=== PATIENT | female | born 1945 | race Caucasian/White ===

== ENCOUNTER 2022-10-19 10:56 | Outpatient (REF) | payer MEDICARE, SELFPAY ==
--- NOTE | ~2022-10-19 | XR_ITS ---
EXAMINATION: XR FOOT, RIGHT CLINICAL INFORMATION: Arthropathic psoriasis. COMPARISON: None available. TECHNIQUE: AP, lateral, and oblique views of the right foot. FINDINGS: There is bony demineralization. No fracture, dislocation or right ankle joint effusion is seen. Boehler's angle is normal. There is a minimal posterior calcaneal spur. There is mild arthritic change of the interphalangeal joint of the great toe, the fifth proximal interphalangeal joint and of the first metatarsophalangeal joint. Tiny marginal erosions are questioned of the first and fifth interphalangeal joints. There is mild bunion formation. There are atherosclerotic calcifications. No focal soft tissue swelling, gas or foreign body is seen. XR/XR foot LT 2V IMPRESSION: 1. There are arthritic changes of the right foot. Tiny marginal erosions are noted of the first and fifth toe interphalangeal joints, consistent with the provided history of psoriatic arthritis. 2. A small posterior calcaneal spur is noted. 3. There is mild bunion formation. EXAMINATION: XR FOOT, LEFT CLINICAL INFORMATION: Arthropathic psoriasis. COMPARISON: None available. TECHNIQUE: AP, lateral, and oblique views of the left foot. FINDINGS: There is bony demineralization. No fracture, dislocation or joint effusion is seen. There is a metatarsus adductus and hallux valgus configuration. There is a large bunion of the first metatarsal head, a small bunionette is seen of the fifth metatarsal head. A small marginal erosion is noted of the head of the first metatarsal bone, raising the possibilities of arthropathic psoriasis or gout. No tophus formation is seen. There is mild osteoarthritic change of the interphalangeal joint of the great toe. Boehler's angle is normal. There is no significant calcaneal spur. There are atherosclerotic calcifications. No focal soft tissue swelling, gas or foreign body seen. IMPRESSION: 1. There are arthritic changes of the left foot. A marginal erosion of the first metatarsal head is consistent with the provided history of psoriatic arthritis. Gout is a further differential consideration. 2. There is bunion formation.
--- NOTE | ~2022-10-19 | XR_ITS ---
EXAMINATION: XR HAND/WRIST, RIGHT CLINICAL INFORMATION: Pain. COMPARISON: None available. TECHNIQUE: PA, lateral, and oblique views of the right hand and wrist are submitted, together with a dedicated navicular view. FINDINGS: There is bony demineralization. There is a mild ulnar minus variance. The second through fourth fingers are held in mild flexion. There is marked osteoarthritic change of the second distal interphalangeal joint. There is mild osteoarthritic change of the second and third metacarpophalangeal joints. There is marked osteoarthritic change of the first carpometacarpal joint. No fracture or dislocation is seen. The proximal and distal carpal rows are intact. There is no abnormal bone erosion. There are atherosclerotic calcifications. No focal soft tissue swelling, gas or foreign body is seen. XR/XR hand wrist RT IMPRESSION: There are multi-focal osteoarthritic changes of the right hand and wrist, detailed. No abnormal bone erosion is seen. No fracture or dislocation. EXAMINATION: XR HAND/WRIST, LEFT CLINICAL INFORMATION: Pain. COMPARISON: None available. TECHNIQUE: PA, lateral, and oblique views of the left hand and wrist are submitted, together with a dedicated navicular view. FINDINGS: There is bony demineralization. There is a very mild ulnar minus variance. There is mild osteoarthritic change of the fifth distal interphalangeal joint. There is slight osteoarthritic change of the third proximal interphalangeal and metacarpophalangeal joints. There is moderately severe osteoarthritic change of the first carpometacarpal joint. No fracture or dislocation is seen. The proximal and distal carpal rows are intact. There is no abnormal bone erosion. There are atherosclerotic calcifications. No focal soft tissue swelling, gas or foreign body is seen. IMPRESSION: There are multi-level osteoarthritic changes of the left hand and wrist, as detailed. There is no focal bone erosion. No fracture or dislocation is seen.
--- NOTE | ~2022-10-19 | XR_ITS ---
EXAMINATION: XR HAND/WRIST, RIGHT CLINICAL INFORMATION: Pain. COMPARISON: None available. TECHNIQUE: PA, lateral, and oblique views of the right hand and wrist are submitted, together with a dedicated navicular view. FINDINGS: There is bony demineralization. There is a mild ulnar minus variance. The second through fourth fingers are held in mild flexion. There is marked osteoarthritic change of the second distal interphalangeal joint. There is mild osteoarthritic change of the second and third metacarpophalangeal joints. There is marked osteoarthritic change of the first carpometacarpal joint. No fracture or dislocation is seen. The proximal and distal carpal rows are intact. There is no abnormal bone erosion. There are atherosclerotic calcifications. No focal soft tissue swelling, gas or foreign body is seen. XR/XR hand wrist LT IMPRESSION: There are multi-focal osteoarthritic changes of the right hand and wrist, detailed. No abnormal bone erosion is seen. No fracture or dislocation. EXAMINATION: XR HAND/WRIST, LEFT CLINICAL INFORMATION: Pain. COMPARISON: None available. TECHNIQUE: PA, lateral, and oblique views of the left hand and wrist are submitted, together with a dedicated navicular view. FINDINGS: There is bony demineralization. There is a very mild ulnar minus variance. There is mild osteoarthritic change of the fifth distal interphalangeal joint. There is slight osteoarthritic change of the third proximal interphalangeal and metacarpophalangeal joints. There is moderately severe osteoarthritic change of the first carpometacarpal joint. No fracture or dislocation is seen. The proximal and distal carpal rows are intact. There is no abnormal bone erosion. There are atherosclerotic calcifications. No focal soft tissue swelling, gas or foreign body is seen. IMPRESSION: There are multi-level osteoarthritic changes of the left hand and wrist, as detailed. There is no focal bone erosion. No fracture or dislocation is seen.
[2022-10-19 13:36] LABS: MANUAL DIFF FLAG NO
[2022-10-19 14:13] LABS: Basophils Percent Auto 0.3 % (0-2); Eosinophils Absolute Auto 0.1 X10*3/uL (0.0-0.4); Eosinophils Percent Auto 0.4 % (0-4); Hematocrit 35.9 % (37.0-47.0); Hemoglobin 11.7 g/dl (12.0-16.0); Imm Gran Pct Auto 0.9 % (0.0-0.4); Lymphocytes Absolute Auto 0.6 X10*3/uL (1.2-4.9); Lymphocytes Percent Auto 5.6 % (20-40); Mean Corpuscular HGB Conc 32.6 g/dl (31.0-35.0); Mean Corpuscular Hemoglobin 33.4 pg (27.0-33.0); Mean Corpuscular Volume 102.6 fL (80.0-98.0); Mean Platelet Volume 10.5 fL (9.4-12.3); Monocytes Absolute Auto 0.9 X10*3/uL (0.1-1.2); Monocytes Percent Auto 7.7 % (2-11); Neutrophils Absolute Auto 9.5 x10*3/uL (2.0-8.3); Neutrophils Percent Auto 85.1 % (45-73); Platelet Count 249 X10*3/uL (160-400); Red Cell Distribution Width 13.3 % (11.0-16.0); White Blood Count 11.2 X10*3/uL (4.8-10.8)
[2022-10-19 15:00] LABS: Alanine Aminotransferase 22 U/L (0-31); Alkaline Phosphatase 55 U/L (39-117); Anion Gap 13 (12-20); Aspartate Amino Transferase 16 U/L (5-31); Bilirubin Total 0.8 mg/dL (0.0-1.0); Blood Urea Nitrogen 25 mg/dL (9-16); Carbon Dioxide 26 mmol/L (22-29); Chloride 108 mmol/L (96-108); Estimated Glomerular Filt Rate 51; Glucose Random 95 mg/dL (60-115); Potassium 4.5 mmol/L (3.3-5.1); Sodium 142 mmol/L (135-145); Total Protein 6.9 g/dL (6.5-8.0); Uric Acid 6.9 mg/dL (2.4-5.7)
[2022-10-19 15:05] LABS: Erythrocyte Sedimentation Rate 50 MM/HR (0-20)
[2022-10-21 04:41] LABS: HBS Num1 0.28 mIU/mL (0-7.99); HBc Num1 0.13 S/CO (0.00-0.79); HBsAGNum1 0.36 S/CO (0.00-0.99); Hepatitis A Antibody IgM 0.67 Index (0-0.79); Hepatitis B Core Antibody Nonreactive (Nonreactive); Hepatitis B Surface Antigen Negative (Negative); ~HepC Num1 0.19 S/CO (0.00-0.79); ~Hepatitis A Antibody IgM Nonreactive (Nonreactive); ~Hepatitis B Surface Antibody NONREACTIVE (Nonreactive); ~Hepatitis C Antibody Nonreactive (Nonreactive)
[2022-10-22 12:49] LABS: TS Negative Control Passed; TS Panel A 0; TS Panel B 0; TS Positive Control Passed; TSpotTB Negative (Negative)
== END 2022-10-19 10:57 | disposition home or self-care (01) ==
LOC: HO.XRAY 10:56
PROVIDERS: PCP Physician Assistant; Visit Provider Nurse Practitioner Family
DX: L40.50 Arthropathic psoriasis, unspecified (principal); M79.641 Pain in right hand; M79.642 Pain in left hand
CPT/HCPCS: 36415; 73110; 73130; 73620; 80053; 84550; 85025; 85652; 86140; 86481; 86704; 86706; 86709; 86803; 87340; 99202

== ENCOUNTER 2022-12-23 10:23 | Outpatient (REF) | payer MEDICARE, SELFPAY ==
--- NOTE | 2022-12-23 10:30 | EMG_ITS ---
Please see scanned EMG / Nerve Conduction Report. MTDD
== END 2022-12-23 10:24 | disposition home or self-care (01) ==
LOC: HO.NEURO 10:23
PROVIDERS: PCP Physician Assistant; Visit Provider Nurse Practitioner Family
DX: R20.0 Anesthesia of skin (principal); R20.2 Paresthesia of skin
CPT/HCPCS: 95885; 95913

== ENCOUNTER 2023-02-03 11:14 | Outpatient (AMB) | payer MEDICARE, SELFPAY ==
[2023-02-03 11:21] VITALS: BP 120/68; PULSE 97; TEMP 36.2; O2SAT 97; BMI 26.0
--- NOTE | 2023-02-03 11:21 | MHC.OFFVIS ---
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 ] denosumab (Prolia) mg subcut digoxin 125 mcg PO DAILY folic acid 3 mg PO DAILY levothyroxine 75 mcg PO DAILY methotrexate sodium 15 mg PO QWEEK metoprolol tartrate 50 mg PO BID metoprolol tartrate 25 mg PO BID prednisone 4 mg (4 x 1 mg) PO DAILY simvastatin 10 mg PO BEDTIME HPI HPI Comments History of Present Illness Details Patient presents with her daughter for evaluation of her psoriatic arthritis. She has been treated with prednisone for a number of years, she recalls being up as high as 9 mg daily. In recent years she has been on methotrexate currently at 15 mg weekly with folic acid 3 mg daily and prednisone at 4 mg daily. She was supposed to come back earlier in the winter but could not come because she had bilateral cataract surgeries and 2 hospitalizations for UTI. The daughter says there are no symptoms that preceded her developing confusion that lead to an ER visit where it was fouhd she had a UTI. Areas of pain include the hands and wrists at times, she has trouble walking because of low back pain, right knee pain and foot pain. She had previous surgery on the right knee for fracture, they are not sure what was actually done. She had hip surgery also for a fracture years ago. She has difficulty with memory but does live along with family support available. She had bilateral upper extremity nerve conduction studies done showing severe carpal tunnel syndrome on the right and moderately severe on the left. [facility] Medical History (Updated 02/03/23 @ 12:41 by Lenin Cruz MD) Atrial fibrillation Benign essential hypertension Chronic kidney disease, stage 3 Gout Hypothyroidism Multiple joint pain Myopia Osteoporosis Polymyalgia rheumatica Presbyopia Psoriasis with arthropathy Surgical History (Updated 02/03/23 @ 11:29 by GRETTA Costa) Hip fracture requiring operative repair Hx of cataract extraction Hx of right knee surgery Family History Mother Ischemic Diabetes Brother Stroke Melanoma PVD (peripheral vascular disease) Bladder cancer Sister Dementia Father Bone cancer Skin cancer Social History Patient Tobacco Use Status: Never used Tobacco e-Cigarette/Vaping Use: Never Used Current occupational status: retired Review of Systems Const Details: Low energy. Negative for appetite change, weight change, fever, chills, malaise Eyes Details: She says she is still recovering from the cataract surgery. Negative for the dry eyes,headaches and dizziness ENT Details: Negative for hearing change, tinnitus, oral ulcer, nose bleeds and oral dryness. Card Details: Negative chest pain, edema, palpitations and syncope Resp Details: Negative for SOB, cough and wheezing GI Details: Negative indigestion/heartburn, nausea, abdominal pain, bowel changes, diarrhea, constipation and bloody stool. Details: Negative for dysuria, hematuria, nocturia, decreased force/flow and genital discharge Skin/Breast Details: Patch of psoriasis on the lower back area. Negative for itching, hives, Raynaud's symptoms, sun sensitivity, and skin cancer Neuro Details: Memory problems. Tingling in the fingers. This is more prominent on the right hand. Negative for epilepsy, palsy, stroke, changes in speech, tingling and weakness Psych Details: Negative for anxiety, depression and stress Endo Details: Was told of a high blood sugar in the past. Daughter said A1cs have been monitored. Negative for polyuria and polydypsia Melecio/Lymph Details: Negative for excessive bruising or bleeding. Physical Exam Vital Signs: Last Vital Signs Temp 97.2 F 02/03/23 11:21 Pulse 97 02/03/23 11:21 BP 120/68 02/03/23 11:21 Pulse Ox 97 02/03/23 11:21 BMI result Body Mass Index 26.0 APPEARANCE: Patient in no acute distress EYES no redness, pupils equal and reactive to light, eyelids normal. No temporal artery tenderness, redness or swelling. EXTREMITIES: No edema, no calf tenderness, normal peripheral pulses. NEURO: Oriented and alert x3. No focal weakness. Reflexes symmetric. She has a tentative wide-based gait. SKIN: Patch of red and scaling skin in the lower back region consistent with psoriasis. Cervical Spine:? Full range of motion without pain; no tenderness. Thoracic Spine.? Kyphotic.? No tenderness on palpation. Lumbar Spine:? Alignment normal.? Mild lumbar pain with flexion at 60 degrees with some paraspinal muscle tenderness. Hands: LEFT:? No pain with range of motion.? There is slight soft tissue swelling of the 1st, 2nd, 3rd, and 5th MCP joints. These are minimally tender. There is some bony thickening at the 2nd 3rd PIP without tenderness. There is some thenar atrophy but no sensory loss. A ? RIGHT:? No pain with range of motion.? Mild swelling of the 1st 3 MCP joints with some slight tenderness at the 2nd MCP. Multiple, small, white superficial deposits noted on pad of the index finger at the DIP, also some bony enlargement of the 2nd DIP, ?Heberden's node versus tophi.? There is slight bony enlargement flexion deformity at the PIP joints. These are not tender. Mild thenar atrophy with some decreased sensation over the fingertips, more prominent in the 1st 3 fingers. Wrists:? Right: Slight discomfort with flexion at 75 degrees with some minimal tenderness but no swelling. Left: Mild pain with flexion or extension at 60 degrees. Mild tenderness without swelling. Elbows: LEFT: Normal pain-free range of motion without tenderness, swelling, increased warmth or erythema. ? RIGHT:? Normal range of motion, tenderness to palpation over the lateral epicondyle and just below the olecranon.? No swelling, increased warmth or erythema. Shoulders:?? Full range of motion without pain. No tenderness, weakness, swelling, increased warmth or erythema. Hips:? Right: Some decrease in range of motion but no pain with motion. Left: Full range of motion without pain. Hip bursa:? No tenderness. Knees: LEFT: Normal pain-free range of motion with slight patellofemoral crepitus.? There is no effusion evident. Slight medial and lateral tenderness without swelling, increased warmth or erythema.? RIGHT:? There is a well-healed anterior scar. She lacks about 10 degrees of full extension. There is mild crepitus with range of motion and slight pain at the extremes of normal flexion or extension. There is mild medial tenderness. Ankles:? Normal pain-free range of motion without tenderness, swelling, increased warmth or erythema. Feet: Moderate hallux valgus deformity and mild bony enlargement at the 1st MTP's, more prominent on the left.. That area is not tender. She does have pes planus deformity but no areas of discrete swelling or tenderness. ? ? ? 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 There is psoriasis in the lower back so I think this is more the picture of psoriatic arthritis rather than PMR. There is likely also some osteoarthritis in hands, feet and lower back. She has severe carpal tunnel syndrome on the right hand moderately severe in the left. This is likely giving her some of the hand paresthesias and numbness. She has had a couple of UTI recently that required hospitalizations so there is concern about the immunosuppressive effect of methotrexate and prednisone. She has been on both for a number of years. I am not sure there is much synovitis that needs to be suppressed with the prednisone so we will try to see if we could back that down to 3 mg daily. She will follow-up with primary care about further workup for her recurrent UTI. Additional treatment for the psoriatic arthritis may be challenging given her proclivity to urinary infections. We will check things in 2-3 months. She needs to get lab work done today to monitor the methotrexate. Orders: Orders Comprehensive Met. Panel Today L40.50 - Arthropathic psoriasis, unspecified C Reactive Protein Today L40.50 - Arthropathic psoriasis, unspecified Complete Blood Count Auto Diff Today L40.50 - Arthropathic psoriasis, unspecified, Z79.899 - Other senior living (current) drug therapy Erythrocyte Sedimentation Rate Today L40.50 - Arthropathic psoriasis, unspecified Medications: Changed From prednisone 4 mg (4 x 1 mg) PO DAILY 120 tabs 1RF M35.3 - Polymyalgia rheumatica To prednisone 3 mg (3 x 1 mg) PO DAILY 90 tabs 1RF M35.3 - Polymyalgia rheumatica Coding Level of Care Code Est Pt Level 3 (99011) Diagnoses Long-term use of immunosuppressant medication Z79.60 Carpal tunnel syndrome on both sides G56.03 Psoriasis L40.9 Osteoarthritis of hands, bilateral M19.041; M19.042 Psoriasis with arthropathy L40.50
== END 2023-02-03 12:15 | disposition home or self-care (01) ==
LOC: HO.RHE 11:14
PROVIDERS: PCP Physician Assistant; Visit Provider Internal Medicine Rheumatology
DX: Z79.60 Long term (current) use of unspecified immunomodulators and immunosuppressants (principal); G56.03 Carpal tunnel syndrome, bilateral upper limbs; L40.9 Psoriasis, unspecified; M19.041 Primary osteoarthritis, right hand; M19.042 Primary osteoarthritis, left hand; L40.50 Arthropathic psoriasis, unspecified
CPT/HCPCS: 99213

== ENCOUNTER → 2023-02-03 11:14 | Outpatient (BNVA) | payer MEDICARE, SELFPAY | PROVIDERS: PCP Physician Assistant; Visit Provider Internal Medicine Rheumatology ==

== ENCOUNTER 2023-02-03 12:22 | Outpatient (REF) | payer MEDICARE, SELFPAY ==
[2023-02-03 13:35] LABS: MANUAL DIFF FLAG NO
[2023-02-03 13:49] LABS: Basophils Absolute Auto 0.1 X10*3/uL (0.0-0.2); Basophils Percent Auto 0.5 % (0-2); Eosinophils Absolute Auto 0.1 X10*3/uL (0.0-0.4); Eosinophils Percent Auto 0.5 % (0-4); Hematocrit 35.8 % (37.0-47.0); Hemoglobin 11.4 g/dl (12.0-16.0); Imm Gran Abs Auto 0.14 X10*3/uL (0.00-0.03); Imm Gran Pct Auto 1.4 % (0.0-0.4); Lymphocytes Absolute Auto 0.8 X10*3/uL (1.2-4.9); Mean Corpuscular HGB Conc 31.8 g/dl (31.0-35.0); Mean Corpuscular Hemoglobin 32.6 pg (27.0-33.0); Mean Corpuscular Volume 102.3 fL (80.0-98.0); Monocytes Absolute Auto 1.4 X10*3/uL (0.1-1.2); Monocytes Percent Auto 14.4 % (2-11); Neutrophils Absolute Auto 7.5 x10*3/uL (2.0-8.3); Neutrophils Percent Auto 75.2 % (45-73); Platelet Count 206 X10*3/uL (160-400); Red Cell Distribution Width 15.3 % (11.0-16.0)
[2023-02-03 14:30] LABS: Alanine Aminotransferase 17 U/L (0-31); Albumin Level 4.1 g/dL (3.5-5.0); Alkaline Phosphatase 48 U/L (39-117); Anion Gap 15 (12-20); Aspartate Amino Transferase 19 U/L (5-31); Bilirubin Total 0.7 mg/dL (0.0-1.0); Blood Urea Nitrogen 13 mg/dL (9-16); C Reactive Protein 0.28 mg/dL (< or = 0.50); Calcium 10.4 mg/dL (8.4-10.2); Carbon Dioxide 27 mmol/L (22-29); Chloride 104 mmol/L (96-108); Estimated Glomerular Filt Rate 55; Glucose Random 96 mg/dL (60-115); Potassium 4.1 mmol/L (3.3-5.1); Sodium 142 mmol/L (135-145); Total Protein 7.5 g/dL (6.5-8.0)
[2023-02-03 15:00] LABS: Erythrocyte Sedimentation Rate 29 MM/HR (0-20)
== END 2023-02-03 12:23 | disposition home or self-care (01) ==
LOC: HO.10HDL 12:22
PROVIDERS: Visit Provider Internal Medicine Rheumatology
DX: L40.50 Arthropathic psoriasis, unspecified (principal); G56.03 Carpal tunnel syndrome, bilateral upper limbs; Z79.60 Long term (current) use of unspecified immunomodulators and immunosuppressants
CPT/HCPCS: 36415; 80053; 85025; 85652; 86140; 99212

== ENCOUNTER 2023-04-28 10:41 | Outpatient (REF) | payer MEDICARE, SELFPAY ==
[2023-04-28 13:19] LABS: MANUAL DIFF FLAG NO
[2023-04-28 13:28] LABS: Basophils Percent Auto 0.4 % (0-2); Eosinophils Absolute Auto 0.1 X10*3/uL (0.0-0.4); Eosinophils Percent Auto 0.6 % (0-4); Hematocrit 34.8 % (37.0-47.0); Hemoglobin 11.2 g/dl (12.0-16.0); Imm Gran Abs Auto 0.09 X10*3/uL (0.00-0.03); Imm Gran Pct Auto 1.2 % (0.0-0.4); Lymphocytes Absolute Auto 0.8 X10*3/uL (1.2-4.9); Mean Corpuscular HGB Conc 32.2 g/dl (31.0-35.0); Mean Corpuscular Hemoglobin 33.3 pg (27.0-33.0); Mean Corpuscular Volume 103.6 fL (80.0-98.0); Mean Platelet Volume 10.7 fL (9.4-12.3); Monocytes Absolute Auto 1.3 X10*3/uL (0.1-1.2); Monocytes Percent Auto 16.7 % (2-11); Neutrophils Absolute Auto 5.5 x10*3/uL (2.0-8.3); Neutrophils Percent Auto 71.1 % (45-73); Platelet Count 177 X10*3/uL (160-400); Red Blood Count 3.36 X10*6/uL (4.20-5.50); Red Cell Distribution Width 14.5 % (11.0-16.0); White Blood Count 7.8 X10*3/uL (4.8-10.8)
[2023-04-28 14:15] LABS: Alanine Aminotransferase 20 U/L (0-31); Aspartate Amino Transferase 20 U/L (5-31); C Reactive Protein 0.48 mg/dL (< or = 0.50); Estimated Glomerular Filt Rate 56
[2023-04-28 14:18] LABS: Erythrocyte Sedimentation Rate 25 MM/HR (0-20)
== END 2023-04-28 10:42 | disposition home or self-care (01) ==
LOC: HO.10HDL 10:41
PROVIDERS: Visit Provider Internal Medicine Rheumatology
DX: L40.50 Arthropathic psoriasis, unspecified (principal); Z79.899 Other long term (current) drug therapy
CPT/HCPCS: 36415; 82565; 84450; 84460; 85025; 85652; 86140

== ENCOUNTER 2023-05-17 13:12 | Outpatient (REF) | payer MEDICARE, SELFPAY ==
--- NOTE | ~2023-05-17 | XR_ITS ---
EXAMINATION: XR HAND, RIGHT CLINICAL INFORMATION: Right index finger elbow lump. COMPARISON: None available. TECHNIQUE: PA, lateral, and oblique views of the right hand. FINDINGS: Bony alignment and mineralization are normal. There is an ulnar minus variance. There is mild osteoarthritic change of the interphalangeal joint of the thumb. There is marked osteoarthritic change of the second distal interphalangeal joint, with Heberden's node formation. There is mild osteoarthritic change of the third and fifth distal interphalangeal joints. There is narrowing of the second and third metacarpophalangeal joints, with subluxations. No fracture or dislocation is seen. The proximal and distal carpal rows are intact. No focal soft tissue swelling, gas or foreign body seen. There are diffuse atherosclerotic calcifications. XR/XR hand RT min 3V IMPRESSION: Screening there are osteoarthritic changes of the right hand, as detailed. Prominent Heberden's nodes of the second distal interphalangeal joint account for the clinical presentation.
[2023-05-17 15:33] LABS: Uric Acid 7.7 mg/dL (2.4-5.7)
== END 2023-05-17 13:13 | disposition home or self-care (01) ==
LOC: HO.XRAY 13:12
PROVIDERS: PCP Physician Assistant; Visit Provider Internal Medicine Rheumatology
DX: L40.50 Arthropathic psoriasis, unspecified (principal); R22.31 Localized swelling, mass and lump, right upper limb; M79.641 Pain in right hand; G56.03 Carpal tunnel syndrome, bilateral upper limbs; Z79.899 Other long term (current) drug therapy
CPT/HCPCS: 36415; 73130; 84550; 99212

== ENCOUNTER 2023-05-17 13:12 | Outpatient (AMB) | payer MEDICARE, SELFPAY ==
--- NOTE | 2023-05-17 13:17 | A.OFFVIS_ITS ---
Intake Vital Signs 3 05/17/23 13:19 Height 5 ft 2 in Weight 142 lb 10.225 oz BMI 26.1 BP 100/86 Blood Pressure Location Rt brachial Position Sitting Pulse 68 Pulse Source Pulse Oximeter Temp 98.1 F Temp Source Skin Pulse Oximetry (%) 98 Oxygen Delivery Method Room Air Intake Visit Reasons: psa Intake Note: Patient presents today to follow up on PsA and test results. c/o white spots on right index finger Advertising Strategist Required: No Accompanied by: Daughter Allergies No Known Allergies Allergy (Verified 05/17/23 13:17) HPI HPI Comments 2 History of Present Illness0 Details The patient returns for evaluation of her arthritis with her daughter. She reports her usual level of joint pain but quite a bit of numbness in the 1st 3 fingers of the right hand. We thinks she may have psoriatic arthritis and we have been tapering her prednisone, currently it is down to 3 mg daily. The methotrexate is at 15 mg weekly with 3 mg daily folic acid. She has had nerve conduction studies showing bilateral carpal tunnel syndrome, more severe on the right side. There is also known osteoarthritis in the hands. She also notes a deposit the radial aspect of the 2nd distal phalanx. This area is not tender and there has been no draining. [facility] Medical History (Updated 05/17/23 @ 14:10 by Lenin Cruz MD) Gout Polymyalgia rheumatica Osteoporosis Myopia Atrial fibrillation Presbyopia Hypothyroidism Psoriasis with arthropathy Benign essential hypertension Chronic kidney disease, stage 3 Multiple joint pain Surgical History Hx of cataract extraction Hx of right knee surgery Hip fracture requiring operative repair Family History Mother Ischemic Diabetes Brother Stroke Melanoma PVD (peripheral vascular disease) Bladder cancer Sister Dementia Father Bone cancer Skin cancer Social History Patient Tobacco Use Status: Never used Tobacco e-Cigarette/Vaping Use: Never Used Current occupational status: retired Review of Systems Const Details: Negative for appetite change, weight change, fever, chills, malaise and fatigue Eyes Details: Negative for vision change, dry eyes,headaches and dizziness ENT Details: Negative for hearing change, tinnitus, oral ulcer, nose bleeds and oral dryness. Card Details: Negative chest pain, edema and syncope Resp Details: Negative for SOB, cough and wheezing GI Details: Negative indigestion/heartburn, nausea, abdominal pain, bowel changes, diarrhea, constipation and bloody stool. Details: She continues to get occasional urinary tract infections. Presently negative for dysuria, hematuria, nocturia, decreased force/flow and genital discharge Skin/Breast Details: She says she has some psoriasis on the back. Chronic problem for her. Negative for itching, hives, Raynaud's symptoms, sun sensitivity the Neuro Details: Numbness in the hands, more severe on the right. Memory difficulties. Negative for epilepsy, palsy, stroke, changes in speech and weakness Endo Details: Negative for polyuria and polydypsia Melecio/Lymph Details: Negative for excessive bruising or bleeding. Physical Exam Vital Signs: Last Vital Signs Temp 98.1 F 05/17/23 13:19 Pulse 68 05/17/23 13:19 BP 100/86 05/17/23 13:19 Pulse Ox 98 05/17/23 13:19 Oxygen Delivery Method Room Air 05/17/23 13:19 BMI result Body Mass Index 26.1 APPEARANCE: Patient in no acute distress EYES no redness, pupils equal and reactive to light, eyelids normal EXTREMITIES: No edema, no calf tenderness, normal peripheral pulses. SKIN: Patch of psoriasis on the back. Fingertip skin has Normal color and turgor JOINT EXAM:.?? Cervical Spine:? Full range of motion without pain; no tenderness. Thoracic Spine.? Kyphotic.? No tenderness on palpation. Lumbar Spine:? Alignment normal.? Mild lumbar pain with flexion at 60 degrees with some paraspinal muscle tenderness. Hands: LEFT:? No pain with range of motion.? There is slight soft tissue swelling of the 1st, 2nd, 3rd, and 5th MCP joints. These are minimally tender. There is some bony thickening at the 2nd 3rd PIP without tenderness. There is some thenar atrophy but no sensory loss. A ? RIGHT:? No pain with range of motion.? Mild swelling of the 1st 3 MCP joints with some slight tenderness at the 2nd MCP. Multiple, small, white superficial deposits noted on pad of the index finger at the DIP, also some bony enlargement of the 2nd DIP, ?Heberden's node versus tophi.? There is slight bony enlargement flexion deformity at the PIP joints. These are not tender. Mild thenar atrophy with some decreased sensation over the fingertips, more prominent in the 1st 3 fingers. Photo of 2nd distal phalanx: Wrists:? Right: Slight discomfort with flexion at 75 degrees with some minimal tenderness but no swelling. Left: Mild pain with flexion or extension at 60 degrees. Mild tenderness without swelling. Elbows: LEFT: Normal pain-free range of motion without tenderness, swelling, increased warmth or erythema. ? RIGHT:? Normal range of motion, tenderness to palpation over the lateral epicondyle and just below the olecranon.? No swelling, increased warmth or erythema. Shoulders:?? Full range of motion without pain. No tenderness, weakness, swelling, increased warmth or erythema. Hips:? Right: Some decrease in range of motion but no pain with motion. Left: Full range of motion without pain. Hip bursa:? No tenderness. Knees: LEFT: Normal pain-free range of motion with slight patellofemoral crepitus.? There is no effusion evident. Slight medial and lateral tenderness without swelling, increased warmth or erythema.? RIGHT:? There is a well-healed anterior scar. She lacks about 10 degrees of full extension. There is mild crepitus with range of motion and slight pain at the extremes of normal flexion or extension. There is mild medial tenderness. Ankles:? Normal pain-free range of motion without tenderness, swelling, increased warmth or erythema. Feet: Moderate hallux valgus deformity and mild bony enlargement at the 1st MTP's, more prominent on the left.. That area is not tender. She does have pes planus deformity but no areas of discrete swelling or tenderness. ? ? Office Procedures Joint Injection/Drain Joint Injection/Drain Primary Site: right carpal tunnel Injected: 40 mg of, with 0.5 mL of and 1% plain lidocaine Coding Additional procedure code (CPT) needed Results Reviewed Results Reviewed: Laboratory Tests 04/28/23 10:50 WBC 7.8 Hgb 11.2 L ESR 25 H Laboratory Tests 04/28/23 10:50 Creatinine 0.96 AST 20 ALT 20 C-Reactive Protein 0.48 Assessment & Plan Assessment & Plan (1) Psoriasis with arthropathy: Code(s): L40.50 - Arthropathic psoriasis, unspecified (2) Mass of finger of right hand: Code(s): R22.31 - Localized swelling, mass and lump, right upper limb (3) Carpal tunnel syndrome on both sides: Comment: 12/23 EMG: severe on right, moderate on left Code(s): G56.03 - Carpal tunnel syndrome, bilateral upper limbs Plan The synovitis in the hands seem stable for now with current treatment but she has this persistent carpal tunnel symptoms, more apparent on the right where on nerve conduction studies findings were more significant for CTS. I told her we could inject the right wrist carpal tunnel regions and see if that would improve her symptoms. That would give her an idea of what to expect were she to have surgery, more definitive treatment. We reviewed potential benefits and risk of corticosteroid injections. With the patient's consent the volar aspect of the right wrist was prepped with ChloraPrep and alcohol. The wrist was anesthetized on the volar aspect with 1.5 cc of 1% lidocaine. The wrist was then injected with 40 mg of triamcinolone and 0.5 cc of 1% lidocaine. The patient tolerated the procedure well without acute problems. She will continue with current methotrexate as the lab work looked okay. This deposit in the finger looks more prominent now again suggestive of either calcium deposits from calcinosis or urate deposits from gout. We will recheck the x-ray to see if there is any visibility calcium minute, otherwise I would presume it is due to urate. We will check a uric acid today as well. I will get back to her with plans on possible allopurinol treatment for this gout problem. Follow-up in 6 weeks is recommended. Orders: Orders 2 XR hand RT min 3V Today R22.31 - Localized swelling, mass and lump, right upper limb AMB Joint Injection/Aspiration Today G56.03 - Carpal tunnel syndrome, bilateral upper limbs Uric Acid Today R22.31 - Localized swelling, mass and lump, right upper limb Medications: Changed 2 From prednisone 3 mg (3 x 1 mg) PO DAILY 90 tabs 2RF M35.3 - Polymyalgia rheumatica To prednisone 2 mg (2 x 1 mg) PO DAILY 60 tabs 2RF M35.3 - Polymyalgia rheumatica Coding Level of Care Code Est Pt Level 4 (26188) Diagnoses Psoriasis with arthropathy L40.50 Mass of finger of right hand R22.31 Carpal tunnel syndrome on both sides G56.03
[2023-05-17 13:19] VITALS: BP 100/86; PULSE 68; TEMP 36.7; O2SAT 98; BMI 26.1
== END 2023-05-17 14:17 | disposition home or self-care (01) ==
PROVIDERS: PCP Physician Assistant; Visit Provider Internal Medicine Rheumatology
DX: L40.50 Arthropathic psoriasis, unspecified (principal); R22.31 Localized swelling, mass and lump, right upper limb; G56.03 Carpal tunnel syndrome, bilateral upper limbs
CPT/HCPCS: 99214

== ENCOUNTER 2023-07-01 10:40 | Outpatient (REF) | payer MEDICARE, SELFPAY ==
[2023-07-01 10:54] LABS: MANUAL DIFF FLAG NO
[2023-07-01 11:25] LABS: Basophils Percent Auto 0.5 % (0-2); Eosinophils Absolute Auto 0.1 X10*3/uL (0.0-0.4); Eosinophils Percent Auto 1.4 % (0-4); Hematocrit 33.2 % (37.0-47.0); Hemoglobin 10.7 g/dl (12.0-16.0); Imm Gran Abs Auto 0.06 X10*3/uL (0.00-0.03); Imm Gran Pct Auto 0.8 % (0.0-0.4); Lymphocytes Percent Auto 13.1 % (20-40); Mean Corpuscular HGB Conc 32.2 g/dl (31.0-35.0); Mean Corpuscular Hemoglobin 33.6 pg (27.0-33.0); Mean Corpuscular Volume 104.4 fL (80.0-98.0); Monocytes Absolute Auto 1.3 X10*3/uL (0.1-1.2); Monocytes Percent Auto 16.6 % (2-11); Neutrophils Absolute Auto 5.2 x10*3/uL (2.0-8.3); Neutrophils Percent Auto 67.6 % (45-73); Platelet Count 157 X10*3/uL (160-400); Red Blood Count 3.18 X10*6/uL (4.20-5.50); Red Cell Distribution Width 14.2 % (11.0-16.0); White Blood Count 7.6 X10*3/uL (4.8-10.8)
[2023-07-01 12:12] LABS: Alanine Aminotransferase 18 U/L (0-31); Aspartate Amino Transferase 17 U/L (5-31); C Reactive Protein 1.01 mg/dL (< or = 0.50); Estimated Glomerular Filt Rate 55; Uric Acid 4.4 mg/dL (2.4-5.7)
[2023-07-01 12:21] LABS: Erythrocyte Sedimentation Rate 37 MM/HR (0-20)
== END 2023-07-01 10:41 | disposition home or self-care (01) ==
LOC: HO.LAB 10:40
PROVIDERS: Visit Provider Internal Medicine Rheumatology
DX: L40.50 Arthropathic psoriasis, unspecified (principal); M1A.9XX1 Chronic gout, unspecified, with tophus (tophi); Z79.899 Other long term (current) drug therapy
CPT/HCPCS: 36415; 82565; 84450; 84460; 84550; 85025; 85652; 86140

== ENCOUNTER 2023-07-22 11:06 | Outpatient (AMB) | payer MEDICARE, SELFPAY ==
--- NOTE | 2023-07-22 11:26 | A.OFFVIS_ITS ---
Intake Vital Signs 07/22/23 11:27 Height 5 ft 2 in Weight 138 lb 7.205 oz BMI 25.3 BP 122/70 Position Sitting Pulse 82 Pulse Source Pulse Oximeter Temp 97.8 F Temp Source Tympanic Pulse Oximetry (%) 98 Oxygen Delivery Method Room Air Intake Visit Reasons: ?gout/pmr/psa Allergies No Known Allergies Allergy (Verified 07/22/23 11:32) Medication List - Last Reconciled 07/22/23 by Sujey Nazario RN acetaminophen (Tylenol Extra Strength) 500 mg PO Q6H PRN allopurinol 1 tab daily for week and then 2 tabs daily thereafter apixaban (Eliquis) 5 mg PO BID cholecalciferol (vitamin D3) 25 mcg PO DAILY [cock up splints wear on wrists at night. ] denosumab (Prolia) mg subcut digoxin 125 mcg PO DAILY folic acid 3 mg PO DAILY levothyroxine 75 mcg PO DAILY methotrexate sodium 15 mg PO QWEEK metoprolol tartrate 50 mg PO BID metoprolol tartrate 25 mg PO BID prednisone 2 mg (2 x 1 mg) PO DAILY simvastatin 10 mg PO BEDTIME HPI HPI Comments History of Present Illness Details The patient returns with her daughter for evaluation of her gout, psoriatic arthritis, osteoarthritis, psoriasis, and carpal tunnel syndrome. She remains on methotrexate 15 mg weekly, she has been forgetting to take the folic acid, and her prednisone is down to 2 mg daily. There is occasional pain in the fingers but no significant flare-ups of severe inflammatory arthritis. She is on the allopurinol at 200 mg daily with no apparent side effects. I had given her a left wrist carpal tunnel injection last time. She said the more severe numbness symptoms in her fingers subsided but she is still left with persistent decreased sensation over the 2nd 3rd fingertips. She receives every 6 months [address] injections from Dr[address] Lomas for her osteoporosis. She still has a patch of psoriasis in the low back region. She does have some ointment to put on that but has trouble reaching it. She recalls much more extensive psoriasis in the past. She walks with a cane, very slowly, because of previous injuries and surgeries on the right leg. COUNTS INCLUDE 234 BEDS AT THE [facility] Medical History Gout Polymyalgia rheumatica Osteoporosis Myopia Atrial fibrillation Presbyopia Hypothyroidism Psoriasis with arthropathy Benign essential hypertension Chronic kidney disease, stage 3 Multiple joint pain Surgical History Hx of cataract extraction Hx of right knee surgery Hip fracture requiring operative repair Family History Mother Ischemic Diabetes Brother Stroke Melanoma PVD (peripheral vascular disease) Bladder cancer Sister Dementia Father Bone cancer Skin cancer Social History Patient Tobacco Use Status: Never used Tobacco e-Cigarette/Vaping Use: Never Used Current occupational status: retired Review of Systems Const Details: Negative for appetite change, weight change, fever, chills, malaise and fatigue Eyes Details: Negative for vision change, dry eyes,headaches and dizziness ENT Details: Negative for hearing change, tinnitus, oral ulcer, nose bleeds and oral dryness. Card Details: Negative chest pain, edema and syncope Resp Details: Negative for SOB, cough and wheezing GI Details: Negative indigestion/heartburn, nausea, abdominal pain, bowel changes, diarrhea, constipation and bloody stool. Skin/Breast Details: Patch of psoriasis in the lumbar region. No other areas of psoriasis. Negative for hives, Raynaud's symptoms, sun sensitivity, and skin cancer Neuro Details: Bilateral numbness in the fingertips in both hands. A bit more severe she thinks on the left. Negative for epilepsy, palsy, stroke, changes in speech, the and weakness Endo Details: Negative for polyuria and polydypsia Melecio/Lymph Details: Negative for excessive bruising or bleeding. Physical Exam Vital Signs: Last Vital Signs Temp 97.8 F 07/22/23 11:27 Pulse 82 07/22/23 11:27 BP 122/70 07/22/23 11:27 Pulse Ox 98 07/22/23 11:27 Oxygen Delivery Method Room Air 07/22/23 11:27 BMI result Body Mass Index 25.3 APPEARANCE: Patient in no acute distress EYES no redness, pupils equal and reactive to light, eyelids normal EXTREMITIES: No edema, no calf tenderness, normal peripheral pulses. SKIN: Patch of psoriasis on the back; about 4 x 8 cm. Fingertip skin has Normal color and turgor JOINT EXAM:.?? Cervical Spine:? Full range of motion without pain; no tenderness. Thoracic Spine.? Kyphotic.? No tenderness on palpation. Lumbar Spine:? Alignment normal.? Mild lumbar pain with flexion at 60 degrees with some paraspinal muscle tenderness. Hands: LEFT:? No pain with range of motion.? There is slight soft tissue swelling of the 1st, 2nd, 3rd, and 5th MCP joints. These are not tender. There is some bony thickening at the 2nd and 3rd PIP joints. The 3rd has a bit more prominent swelling with some mild tenderness but no redness or warmth. There is some thenar atrophy with her happens decreased sensation over the 2nd 3rd fingertips. ? RIGHT:? No pain with range of motion.? Mild swelling of the 1st 3 MCP joints with some slight tenderness at the 3rd MCP. Multiple, small, white superficial deposits noted on pad of the index finger at the DIP, also some bony enlargement of the 2nd DIP, ?Heberden's node versus tophi.? There is slight bony enlargement flexion deformity at the PIP joints. These are not tender. Mild thenar atrophy with some decreased sensation over the fingertips, more prominent in the 1st 3 fingers. Wrists:? Right: Slight discomfort with flexion at 75 degrees with some minimal tenderness but no swelling. Left: Mild pain with flexion or extension at 60 degrees. Mild tenderness without swelling. Elbows: LEFT: Normal pain-free range of motion without tenderness, swelling, increased warmth or erythema. ? RIGHT:? Normal range of motion, tenderness to palpation over the lateral epicondyle and just below the olecranon.? No swelling, increased warmth or erythema. Shoulders:?? Full range of motion without pain. No tenderness, weakness, swelling, increased warmth or erythema. Hips:? Right: Some decrease in range of motion but no pain with motion. Left: Full range of motion without pain. Hip bursa:? No tenderness. Knees: LEFT: Normal pain-free range of motion with slight patellofemoral crepitus.? There is no effusion evident. Slight medial and lateral tenderness without swelling, increased warmth or erythema.? RIGHT:? There is a well-healed anterior scar. She lacks about 10 degrees of full extension. There is mild crepitus with range of motion and slight pain at the extremes of normal flexion or extension. There is mild medial tenderness. Ankles:? Normal pain-free range of motion without tenderness, swelling, increased warmth or erythema. Feet: Moderate hallux valgus deformity and mild bony enlargement at the 1st MTP's, more prominent on the left.. That area is not tender. She does have pes planus deformity but no areas of discrete swelling or tenderness. ? ? Results Reviewed Results Reviewed: Laboratory Tests 07/01/23 10:53 WBC 7.6 Hgb 10.7 L ESR 37 H Creatinine 0.98 Uric Acid 4.4 AST 17 ALT 18 C-Reactive Protein 1.[address] [address] XRay Report Signed Patient: Shea Monet MR#: [id number] : 1945 Acct:[id number] Age/Sex: 77 / F ADM Date: 05/17/23 Ordering Physician: Lenin Cruz MD Date of Service: 05/17/23 Procedure(s): XR hand RT min 3V Accession Number(s): [id number] cc: Eli Orr; Lenin Cruz MD~ EXAMINATION: XR HAND, RIGHT CLINICAL INFORMATION: Right index finger elbow lump. COMPARISON: None available. TECHNIQUE: PA, lateral, and oblique views of the right hand. FINDINGS: Bony alignment and mineralization are normal. There is an ulnar minus variance. There is mild osteoarthritic change of the interphalangeal joint of the thumb. There is marked osteoarthritic change of the second distal interphalangeal joint, with Heberden's node formation. There is mild osteoarthritic change of the third and fifth distal interphalangeal joints. There is narrowing of the second and third metacarpophalangeal joints, with subluxations. No fracture or dislocation is seen. The proximal and distal carpal rows are intact. No focal soft tissue swelling, gas or foreign body seen. There are diffuse atherosclerotic calcifications. XR/XR hand RT min 3V IMPRESSION: Screening there are osteoarthritic changes of the right hand, as detailed. Prominent Heberden's nodes of the second distal interphalangeal joint account for the clinical presentation. Dictated By: Moncho Joseph MD Assessment & Plan Assessment & Plan (1) Psoriasis with arthropathy: Code(s): L40.50 - Arthropathic psoriasis, unspecified (2) Osteoarthritis of hands, bilateral: Code(s): M19.041 - Primary osteoarthritis, right hand; M19.042 - Primary osteoarthritis, left hand (3) Long-term use of immunosuppressant medication: Code(s): Z79.60 - assistant terminal manager (current) use of unspecified immunomodulators and immunosuppressants (4) Carpal tunnel syndrome on both sides: Comment: 12/23 EMG: severe on right, moderate on left Code(s): G56.03 - Carpal tunnel syndrome, bilateral upper limbs (5) 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 She has a few tender joints but most disease look like secondary osteoarthritis, either from psoriatic arthritis or from gout. The subcutaneous nodules in the right the 2nd fingertip did not show up on x-ray so I suspect these are uric acid deposits, i.e. tophi. They are not tender today. I think she should stay on the allopurinol as the uric acid control is good with current dose. She seems to be tolerating the methotrexate for the psoriasis and the psoriatic arthritis. She is down to 2 mg on the prednisone and I think we could taper further to 1 mg daily in light of her history of osteoporosis. She continues with persistent numbness in the fingertips. This improved to some extent with the left wrist injection but she still has symptoms suggesting surgical treatment would relieve her of many of these symptoms but possibly not all of them given the chronicity of her nerve entrapment at the wrist. She is offered referral to surgery but does not want to pursue it for now. We will continue with current medication other than the decrease in the prednisone and plan to see her back in about 3 months. Orders: Orders C Reactive Protein Today L40.50 - Arthropathic psoriasis, unspecified Alanine Aminotransferase Today L40.50 - Arthropathic psoriasis, unspecified, Z79.899 - Other intermediate (current) drug therapy Aspartate Amino Transferase Today L40.50 - Arthropathic psoriasis, unspecified, Z79.899 - Other long term care social worker (current) drug therapy Creatinine Today L40.50 - Arthropathic psoriasis, unspecified, Z79.899 - Other long term care social worker (current) drug therapy Uric Acid Today M1A.9XX1 - Chronic gout, unspecified, with tophus (tophi) Erythrocyte Sedimentation Rate Today L40.50 - Arthropathic psoriasis, unspecified Complete Blood Count Auto Diff Today L40.50 - Arthropathic psoriasis, unspecified, Z79.899 - Other intermediate (current) drug therapy Medications: New methotrexate sodium 15 mg (6 x 2.5 mg) PO QWEEK 24 tabs 2RF L40.50 - Arthropathic psoriasis, unspecified Changed From folic acid 3 mg PO DAILY L40.50 - Arthropathic psoriasis, unspecified To folic acid 1 mg PO DAILY 90 tabs 3RF L40.50 - Arthropathic psoriasis, unspecified Coding Level of Care Code Est Pt Level 4 (02054) Diagnoses Psoriasis with arthropathy L40.50 Osteoarthritis of hands, bilateral M19.041; M19.042 Long-term use of immunosuppressant medication Z79.60 Carpal tunnel syndrome on both sides G56.03 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
[2023-07-22 11:27] VITALS: BP 122/70; PULSE 82; TEMP 36.6; O2SAT 98; BMI 25.3
== END 2023-07-22 12:09 | disposition home or self-care (01) ==
PROVIDERS: PCP Physician Assistant; Visit Provider Internal Medicine Rheumatology
DX: L40.50 Arthropathic psoriasis, unspecified (principal); M19.041 Primary osteoarthritis, right hand; M19.042 Primary osteoarthritis, left hand; Z79.60 Long term (current) use of unspecified immunomodulators and immunosuppressants; G56.03 Carpal tunnel syndrome, bilateral upper limbs; M1A.9XX1 Chronic gout, unspecified, with tophus (tophi)
CPT/HCPCS: 99214

== ENCOUNTER → 2023-07-22 11:06 | Outpatient (BNVA) | payer MEDICARE, SELFPAY | PROVIDERS: PCP Physician Assistant; Visit Provider Internal Medicine Rheumatology | DX: L40.50 Arthropathic psoriasis, unspecified (principal); M1A.9XX1 Chronic gout, unspecified, with tophus (tophi); M19.041 Primary osteoarthritis, right hand; M19.042 Primary osteoarthritis, left hand; G56.03 Carpal tunnel syndrome, bilateral upper limbs; Z79.60 Long term (current) use of unspecified immunomodulators and immunosuppressants | CPT/HCPCS: 99212 ==

== ENCOUNTER → 2024-09-21 13:02 | Outpatient (BNV) | payer MEDICARE, SELFPAY | PROVIDERS: PCP Physician Assistant; Referring Provider Physician Assistant; Visit Provider Nurse Practitioner Family | DX: D64.9 Anemia, unspecified (principal) | CPT/HCPCS: 99204 ==

== ENCOUNTER 2025-07-10 06:22 | Outpatient (REF) | payer SELFPAY ==
--- OUTSIDE RECORDS SUMMARY | 2021-07-09 08:30 | XMS_ITS | Continuity of Care Document ---
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
[2025-07-10 07:03] LABS: Hematocrit 30.4 % (37.0-47.0); Hemoglobin 9.6 g/dl (12.0-16.0); Imm Gran Abs Auto 0.17 X10*3/uL (0.00-0.03); Imm Gran Pct Auto 2.3 % (0.0-0.4); Lymphocytes Absolute Auto 1.8 X10*3/uL (1.2-4.9); MANUAL DIFF FLAG SCAN; Mean Corpuscular HGB Conc 31.6 g/dl (31.0-35.0); Mean Corpuscular Hemoglobin 32.1 pg (27.0-33.0); Mean Corpuscular Volume 101.7 fL (80.0-98.0); NRBC Abs Auto 0.000 X10*3/uL (0.0-0.012); NRBC Pct Auto 0.0 /100WBC (0.0-0.2); Platelet Count 135 X10*3/uL (160-400); Red Blood Count 2.99 X10*6/uL (4.20-5.50); SCAN SMEAR FLAG 1; White Blood Count 7.5 X10*3/uL (4.8-10.8)
[2025-07-10 07:33] LABS: Alanine Aminotransferase 14 U/L (0-31); Albumin Level 3.6 g/dL (3.5-5.0); Alkaline Phosphatase 88 U/L (39-117); Anion Gap 10 (12-20); Aspartate Amino Transferase 21 U/L (5-31); Blood Urea Nitrogen 15 mg/dL (9-16); Calcium 9.2 mg/dL (8.4-10.2); Carbon Dioxide 23 mmol/L (22-29); Chloride 108 mmol/L (96-108); Estimated Glomerular Filt Rate > 60; Potassium 3.4 mmol/L (3.3-5.1); Sodium 138 mmol/L (135-145); Total Protein 6.9 g/dL (6.5-8.0)
[2025-07-10 07:47] LABS: Procalcitonin 0.05 ng/mL
== END 2025-07-10 06:23 | disposition home or self-care (01) ==
LOC: HO.MMNH2L 06:22
PROVIDERS: Visit Provider Physician Assistant Medical
DX: I10 Essential (primary) hypertension (principal); I48.91 Unspecified atrial fibrillation
CPT/HCPCS: 36415; 80053; 84145; 85025

== ENCOUNTER 2025-07-25 14:18 | Outpatient (REF) | payer SELFPAY ==
[2025-07-25 15:58] LABS: Chlamydia pneumoniae PCR Not Detected (Not Detect.); Coronavirus 229E PCR Not Detected (Not Detect.); Coronavirus HKU1 PCR Not Detected (Not Detect.); Coronavirus NL63 PCR Not Detected (Not Detect.); Coronavirus OC43 PCR Not Detected (Not Detect.); RSV PCR Not Detected (Not Detect.); Rhino/Enterovirus PCR Not Detected (Not Detect.); SARS-CoV-2 PCR Not Detected (Not Detect.)
[2025-07-25 16:22] LABS: Influenza A H1 PCR Not Detected (Not Detect.); Influenza A H1-2009 PCR Not Detected (Not Detect.); Influenza A H3 PCR Not Detected (Not Detect.)
== END 2025-07-25 14:19 | disposition home or self-care (01) ==
LOC: HO.MMNH2L 14:18
PROVIDERS: Visit Provider Physician Assistant Medical
DX: N39.0 Urinary tract infection, site not specified (principal); R29.6 Repeated falls
CPT/HCPCS: 87633